=== PATIENT | female | born 1955 | race Caucasian/White ===

== ENCOUNTER → 2018-08-17 | Outpatient (CLI) | payer OTHER ==
[~2018-08-17] MED LIST: CHOL10002 PO; LEVSOD100 PO; ONDA4ODT MM; OXYC5; PROGESTERONE200 MG PO
== END | disposition home or self-care (01) ==
LOC: LAB SHORT 07:45 → LAB 07:45 → LAB FUT 07-27 13:05
DX: R10.13 Epigastric pain (principal)
CPT/HCPCS: 87338

== ENCOUNTER → 2021-06-30 | Outpatient (CLI) | payer OTHER ==
[2021-07-02 15:11] LABS: HPV 16 Negative (Negative); HPV 18 Negative (Negative); HPV OTHER HR TYPES Negative (Negative)
== END | disposition home or self-care (01) ==
LOC: LAB SHORT 12:05
PROVIDERS: Internal Medicine
DX: Z12.4 Encounter for screening for malignant neoplasm of cervix (principal)
CPT/HCPCS: 87624; G0145